=== PATIENT | female | born 1960 | race Caucasian/White ===

== ENCOUNTER 2016-07-24 12:49 | Emergency (ER) | payer MEDICARE, MEDICAID ==
[~2016-07-24] VITALS: Ht 160 cm; Wt 64.0 kg
[~2016-07-24 12:49] MED LIST: BACT800T5 PO; FLUO40CA PO; HYDR-3580 PO; IBUP-238 PO; LORA0.5T PO
[2016-07-24 12:51] VITALS: BP 174/81; PULSE 87; RESP 15; TEMP 97.7; O2SAT 98
[2016-07-24] MEDS ORDERED: PRIL20CA9 PO (13:40)
[2016-07-24] MEDS ORDERED: FLUO40CA PO (13:40)
[2016-07-24] MEDS ORDERED: PERC5TAB12 PO (13:40)
[2016-07-24] MEDS ORDERED: IBUP800T23 PO (14:22)
[2016-07-24] MEDS ORDERED: ROBA500T PO (14:22)
--- NOTE | 2016-07-24 14:22 | PD ---
HPI Chief Complaint: Back/ Neck Pain or Injury Time Seen by Provider: 14:20 Travel History International Travel<30 days: No Contact w/Intl Traveler<30days: No Traveled to known affect area: No History of Present Illness HPI 56-year-old female presents to the emergency department with complaint of right- sided sciatica. She has history of chronic low back pain and right-sided sciatica. Her sciatica was exacerbated 4 weeks ago. She has had chronic low back pain for approximately 11 years. She denies new or recent injury. Denies encopresis, incontinence, saddle anesthesias. Denies fever, chills, nausea, vomiting. Denies urinary symptoms. Denies IV drug use. Denies cancer. Denies paresthesias, loss of sensation, decreased range of motion, decreased strength to bilateral lower extremities. Pain is aggravated with movement, walking, palpation. Dr. Pride is primary care provider. Allergies to penicillin and strawberries. No other modifying factors or associated signs and symptoms. PFSH Past Medical History Arthritis: Yes Anxiety: Yes Depression: Yes Cancer: No Cardiovascular Problems: No Diabetes: No Diminished Hearing: No Endocrine: No GERD: Yes Genitourinary: No Hepatitis: No Hiatal Hernia: No Immune Disorder: No Musculoskeletal: Yes (arthritis) Neurologic: Yes (right arm pain) Psychiatric: Yes (DEPRESSION) Reproductive: No Respiratory: No Thyroid Disease: No Menopausal: Yes : 18 Para: 4 Tubal Ligation: Yes Past Surgical History Abdominal Surgery: No AICD: No Cardiac Surgery: No Ear Surgery: No Endocrine Surgery: No Eye Surgery: No Genitourinary Surgery: No Gynecologic Surgery: No Joint Replacement: No Oral Surgery: Yes (upper and lower lip/facial surgery due to a dog bite) Pacemaker: No Thoracic Surgery: No Other Surgery: Yes (KNEE, BACK-WITH CAGE PLACMENT, AND FACE) Social History Alcohol Use: No Tobacco Use: Yes (1/2 PPD) Substance Use: Yes (MARIJUANA) Allergies-Medications (Allergen,Severity, Reaction): Coded Allergies: Penicillin (Verified Allergy, Mild, HIVES, 01/21/16) [place] (Verified Allergy, Mild, HIVES, 01/21/16) Reported Meds & Prescriptions Reported Meds & Active Scripts Active Robaxin (Methocarbamol) 500 Mg Tab 500 Mg PO QID PRN Ibuprofen 800 Mg Tab 800 Mg PO Q6HR PRN Reported Percocet (Oxycodone-Acetaminophen) 5-325 mg Tab 1 Tab PO Q4H PRN Prilosec (Omeprazole) 20 Mg Cap 20 Mg PO DAILY Fluoxetine (Fluoxetine HCl) 40 Mg Cap 40 Cap PO DAILY Review of Systems Except as stated in HPI: all other systems reviewed are Neg Physical Exam Narrative GENERAL: Well-nourished, well-developed female patient, in no acute distress; afebrile, nontoxic-appearing SKIN: Warm and dry. HEAD: Atraumatic. Normocephalic. EYES: Pupils equal and round. No scleral icterus. No injection or drainage. ENT: Mucosa pink and moist. Airway patent. NECK: Trachea midline. CARDIOVASCULAR: Regular rate. RESPIRATORY: No accessory muscle use. GASTROINTESTINAL: Flat. MUSCULOSKELETAL: Bilateral lower extremities supple and non-tense with 2+ pedal pulses and sensory intact; with full range of motion and 5/5 strength. Active dorsiflexion and extension of bilateral feet. Bilateral straight leg raise is negative for low back pain. Ambulatory with normal gait. Sitting up in bed at 90. No obvious deformities. No clubbing. No cyanosis. No edema. BACK: No midline point tenderness on palpation of the lumbar spine. Tenderness on palpation of right iliosacral area. No obvious deformities. NEUROLOGICAL: Awake and alert. Oriented 3. No obvious cranial nerve deficits. Motor grossly within normal limits. Normal speech. Moves all extremities. 5/5 strength to all extremities. Sensory intact. PSYCHIATRIC: Appropriate mood and affect; insight and judgment normal. Data Data Last Documented VS Vital Signs Date Time Temp Pulse Resp B/P Pulse Ox O2 Delivery O2 Flow Rate FiO2 07/24/16 12:51 97.7 87 15 174/81 98 Orders Ketorolac Inj (Toradol Inj) (07/24/16 14:30) Orphenadrine Inj (Norflex Inj) (07/24/16 14:30) MDM Medical Decision Making Medical Screen Exam Complete: Yes Emergency Medical Condition: Yes Medical Record Reviewed: Yes Differential Diagnosis Acute exacerbation of chronic low back pain, sciatica, low back strain Narrative Course 56-year-old female with chronic low back pain with acute exacerbation of chronic low back pain and right-sided sciatica. No new or recent injury. No midline point tenderness on palpation of the lumbar spine. Reproducible tenderness to the right iliosacral area. Denies IV drug use. Denies cancer. Denies fever, chills, nausea, vomiting. Patient is afebrile nontoxic appearing in the ER. Toradol and Norflex administered in the ER. Ibuprofen and Robaxin prescribed for home. Patient is medically cleared and stable for discharge. Discussed reasons to return to the emergency department. Instructed patient to follow up with primary care provider. Patient agrees with treatment plan. The patients vital signs are stable and the patient is stable for outpatient follow- up and treatment. Patient discharged home, stable and in no acute distress. Diagnosis Primary Impression: Right-sided low back pain with sciatica Qualified Code: M54.41 - Right-sided low back pain with right-sided sciatica, unspecified chronicity Referrals: Primary Care Physician Patient Instructions: General Instructions, Sciatica (ED) Departure Forms: Tests/Procedures Additional Instructions: Tylenol or ibuprofen as directed and as needed for pain Robaxin as prescribed and as needed for muscle spasms Heating pad and/or ice to affected area to reduce pain Avoid aggravating activities; increase activity as tolerated Follow-up with primary care provider Return to emergency department immediately with worsening of symptoms Med/Other Pt SpecificInfo: Prescription(s) given Scripts Methocarbamol (Robaxin)500 Mg [id number] Mg PO QID PRN (MUSCLE SPASM) #30 TAB Ref 0 Prov:Delores Calix 07/24/16 Ibuprofen 800 Mg [id number] Mg PO Q6HR PRN (PAIN) #30 TAB Ref 0 Prov:Delores Calix 07/24/16 Disposition: 01 DISCHARGE HOME Condition: Stable Delores Calix Jul 24, 2016 14:22
[2016-07-24] MEDS ORDERED: KETOROLAC TROMETHAMINE 60 MG/2 ML (IM) VIAL IM ONE (14:30)
[2016-07-24] MEDS ORDERED: ORPHENADRINE INJ 60 MG/2 ML AMP IM ONE (14:30)
== END 2016-07-24 15:06 | disposition home or self-care (01) ==
LOC: NEPB 12:49
DX: M54.41 Lumbago with sciatica, right side (principal); K21.9 Gastro-esophageal reflux disease without esophagitis; F17.210 Nicotine dependence, cigarettes, uncomplicated
CPT/HCPCS: 99283

== ENCOUNTER 2017-02-27 09:34 | Emergency (ER) | payer MEDICARE, MEDICAID ==
[~2017-02-27] VITALS: Ht 160 cm; Wt 104.0 kg
[~2017-02-27 09:34] MED LIST changes: -BACT800T5 PO; -HYDR-3580 PO; -IBUP-238 PO; +IBUP800T23 PO; -LORA0.5T PO; +PERC5TAB12 PO; +PRIL20CA9 PO; +ROBA500T PO
[2017-02-27 09:36] VITALS: BP 192/98; PULSE 85; RESP 20; TEMP 98.4; O2SAT 99
[2017-02-27] MEDS ORDERED: predniSONE 20 MG TAB PO ONE (10:30)
--- NOTE | 2017-02-27 10:30 | PD ---
HPI Chief Complaint: Pain: Acute or Chronic Time Seen by Provider: 10:24 Travel History International Travel<30 days: No Contact w/Intl Traveler<30days: No Traveled to known affect area: No History of Present Illness HPI 56-year-old female presents the emergency department with worsening right shoulder pain. Patient states she's had right shoulder pain for the last several weeks, and has been seen by her primary care physician as well as her pain management physician for the same issue. She is currently taking a nonsteroidal as well as muscle relaxant without improvement. Patient states no acute injury. Patient states she woke this morning with much worse pain and decreased range of motion in the right shoulder. The patient denies numbness, tingling, or weakness in the distal right upper extremity. Pain is currently a 10 out of 10 with any movement. She is allergic to penicillin and strawberries PFSH Past Medical History Arthritis: Yes Anxiety: Yes Depression: Yes Cancer: No Cardiovascular Problems: No Diabetes: No Diminished Hearing: No Endocrine: No GERD: Yes Genitourinary: No Hepatitis: No Hiatal Hernia: No Immune Disorder: No Musculoskeletal: Yes (arthritis) Neurologic: Yes (right arm pain) Psychiatric: Yes (DEPRESSION) Reproductive: No Respiratory: No Thyroid Disease: No Menopausal: Yes : 18 Para: 4 Tubal Ligation: Yes Past Surgical History Abdominal Surgery: No AICD: No Cardiac Surgery: No Ear Surgery: No Endocrine Surgery: No Eye Surgery: No Genitourinary Surgery: No Gynecologic Surgery: No Joint Replacement: No Oral Surgery: Yes (upper and lower lip/facial surgery due to a dog bite) Pacemaker: No Thoracic Surgery: No Other Surgery: Yes (KNEE, BACK-WITH CAGE PLACMENT, AND FACE) Social History Alcohol Use: No Tobacco Use: Yes (/2 PPD) Substance Use: Yes (MARIJUANA) Allergies-Medications (Allergen,Severity, Reaction): Coded Allergies: penicillin G (Unverified Allergy, Mild, HIVES, 02/27/17) strawberry (Unverified Allergy, Mild, HIVES, 02/27/17) Reported Meds & Prescriptions Reported Meds & Active Scripts Active Robaxin (Methocarbamol) 500 Mg Tab 500 Mg PO QID PRN Ibuprofen 800 Mg Tab 800 Mg PO Q6HR PRN Reported Percocet (Oxycodone-Acetaminophen) 5-325 mg Tab 1 Tab PO Q4H PRN Prilosec (Omeprazole) 20 Mg Cap 20 Mg PO DAILY Fluoxetine (Fluoxetine HCl) 40 Mg Cap 40 Cap PO DAILY Review of Systems Except as stated in HPI: all other systems reviewed are Neg General / Constitutional: No: Fever Eyes: No: Visual changes HENT: No: Headaches Cardiovascular: No: Chest Pain or Discomfort Respiratory: No: Shortness of Breath Gastrointestinal: No: Abdominal Pain Genitourinary: No: Dysuria Musculoskeletal: Positive: Arthralgias, Limited ROM, Pain Skin: No Rash Neurologic: No: Weakness Psychiatric: No: Depression Endocrine: No: Polydipsia Hematologic/Lymphatic: No: Easy Bruising Physical Exam Narrative GENERAL: Patient appears in mild to moderate distress. SKIN: Warm and dry. Normal color. Normal turgor. No rash. HEAD: Atraumatic. Normocephalic. EYES: Pupils equal and round. No scleral icterus. No injection or drainage. ENT: No nasal bleeding or discharge. Mucous membranes pink and moist. Pharynx is clear. Airway is patent. NECK: Trachea midline. No bony tenderness or step-off. Patient is soft tissue tenderness extending into the right upper trapezius. CARDIOVASCULAR: Regular rate and rhythm. No murmurs gallops or rubs. RESPIRATORY: No accessory muscle use. Clear to auscultation. Breath sounds equal bilaterally. MUSCULOSKELETAL: Extremities without clubbing, cyanosis, or edema. No obvious deformities. She has diminished active and passive motion of the right shoulder secondary to pain only. No obvious signs of deformity, laxity, or loss of function is noted. No effusion is noted. No significant increased warmth is noted. NEUROLOGICAL: Awake and alert. No obvious cranial nerve deficits. Motor grossly within normal limits. Five out of 5 muscle strength in the arms and legs. Normal speech. PSYCHIATRIC: Appropriate mood and affect; insight and judgment normal. Data Data Last Documented VS Vital Signs Date Time Temp Pulse Resp B/P (MAP) Pulse Ox O2 Delivery O2 Flow Rate FiO2 02/27/17 09:36 98.4 85 20 192/98 (129) 99 Orders Orders Prednisone (Deltasone) (02/27/17 10:30) [facility] Medical Decision Making Medical Screen Exam Complete: Yes Emergency Medical Condition: Yes Differential Diagnosis Right shoulder pain. Right shoulder bursitis. Shoulder tendinitis. Shoulder arthritis. Narrative Course Radiographic imaging is not felt warranted based on the patient's current history and physical. Patient is given prednisone 40 mg by mouth now. Patient will be continued on prednisone 20 mg twice a day 7 days. Patient is to continue other meds as previously prescribed. Patient follow with her primary care physician/pain management for further evaluation and treatment as needed. Diagnosis Primary Impression: Right shoulder tendonitis Referrals: Primary Care Physician call for appointment Patient Instructions: General Instructions, Shoulder Pain (ED) Additional Instructions: Radiographic imaging is not felt warranted based on the patient's current history and physical. Patient is given prednisone 40 mg by mouth now. Patient will be continued on prednisone 20 mg twice a day 7 days. Patient is to continue other meds as previously prescribed. Patient follow with her primary care physician/pain management for further evaluation and treatment as needed. Med/Other Pt SpecificInfo: Prescription(s) given Disposition: 01 DISCHARGE HOME Condition: Stable Benoit Mcdonald Feb 27, 2017 10:30
[2017-02-27] MEDS ORDERED: PRED20 PO (10:31)
== END 2017-02-27 10:54 | disposition home or self-care (01) ==
LOC: NEPK 09:34
DX: M75.81 Other shoulder lesions, right shoulder (principal); Z72.0 Tobacco use
CPT/HCPCS: 99283; J7512

== ENCOUNTER 2017-08-18 09:46 | Emergency (ER) | payer MEDICARE, MEDICAID ==
[~2017-08-18] VITALS: Ht 160 cm; Wt 60.0 kg
[~2017-08-18 09:46] MED LIST changes: +IBUP1TAB7 PO; -IBUP800T23 PO; +PRED20 PO
[2017-08-18 09:59] VITALS: BP 146/76; PULSE 78; RESP 18; TEMP 98.3; O2SAT 100
--- NOTE | 2017-08-18 11:23 | RADRPT ---
EXAM DATE/TIME: 08/18/2017 11:11 [place] COMPARISON: No previous studies available for comparison. INDICATIONS : Knee pain, swelling, and bruising after fall today. MEDICAL HISTORY : None. SURGICAL HISTORY : None. ENCOUNTER: Initial ACUITY: 1 day PAIN SCORE: 10/10 LOCATION: Left knee. FINDINGS: Four view examination of the left knee demonstrates no evidence of fracture or dislocation. Bony min eralization is normal. The articular surfaces are intact. The suprapatellar soft tissues have a nor mal configuration. Mild soft tissue swelling overlying the proximal anterior tibial region. CONCLUSION: 1. No acute fracture or dislocation. Delgado Frye MD on August 18, 2017 at 11:19 Board Certified Radiologist. This report was verified electronically.
[2017-08-18] MEDS ORDERED: ALPR2TAB3 PO (11:43)
[2017-08-18] MEDS ORDERED: FLUO60TA PO (11:43)
[2017-08-18] MEDS ORDERED: OMEP20TA93 PO (11:43)
--- NOTE | 2017-08-18 11:43 | PD ---
HPI . Left knee injury Chief Complaint: Injury Time Seen by Provider: 10:53 Travel History International Travel<30 days: No Contact w/Intl Traveler<30days: No Traveled to known affect area: No History of Present Illness HPI Patient presents status post a mechanical fall at about 8:45 this morning. She landed on her left knee. She presents to us complaining with pain which she rates 4/10. She is able to walk. She is now complaining with some associated spasms in her calf. She has not done anything for it prior to arrival. Pain is exacerbated by walking. PFSH Past Medical History Arthritis: Yes Anxiety: Yes Depression: Yes Cancer: No Cardiovascular Problems: No Diabetes: No Diminished Hearing: No Endocrine: No GERD: Yes Genitourinary: No Hepatitis: No Hiatal Hernia: No Immune Disorder: No Musculoskeletal: Yes (arthritis) Neurologic: Yes (right arm pain) Psychiatric: Yes (DEPRESSION) Reproductive: No Respiratory: No Thyroid Disease: No Menopausal: Yes : 18 Para: 4 Tubal Ligation: Yes Past Surgical History Abdominal Surgery: No AICD: No Cardiac Surgery: No Ear Surgery: No Endocrine Surgery: No Eye Surgery: No Genitourinary Surgery: No Gynecologic Surgery: No Joint Replacement: No Oral Surgery: Yes (upper and lower lip/facial surgery due to a dog bite) Pacemaker: No Thoracic Surgery: No Other Surgery: Yes (KNEE, BACK-WITH CAGE PLACMENT, AND FACE) Social History Alcohol Use: No Tobacco Use: Yes (/2 PPD) Substance Use: Yes (MARIJUANA) Allergies-Medications (Allergen,Severity, Reaction): Coded Allergies: penicillin G (Unverified Allergy, Mild, HIVES, 08/18/17) strawberry (Unverified Allergy, Mild, HIVES, 08/18/17) Reported Meds & Prescriptions Reported Meds & Active Scripts Active Ibuprofen 800 Mg Tab 800 Mg PO Q6HR PRN Reported Alprazolam 2 Mg Tab 2 Mg PO Q8H PRN Omeprazole 20 Mg Tab 20 Mg PO DAILY Fluoxetine (Fluoxetine HCl) 60 Mg Tab 60 Mg PO DAILY Percocet (Oxycodone-Acetaminophen) 5-325 mg Tab 1 Tab PO Q4H PRN Review of Systems Except as stated in HPI: all other systems reviewed are Neg HENT: Positive: Other (abrasion to her chin) Musculoskeletal: Positive: Arthralgias, Limited ROM Skin: Positive Change in Pigmentation Physical Exam Narrative GENERAL: Awake and alert and in no acute distress. SKIN: Warm and dry. Bruise distal to the left patella. HEAD: Normocephalic/atraumatic. EYES: Pupils are equal. Extraocular movements are intact. NECK: Normal range of motion. RESPIRATORY: Nonlabored respirations. MUSCULOSKELETAL: Tenderness distal to the left patella. The knee joint itself appears normal with no deformity. She is distally neurovascularly intact. NEUROLOGICAL: Nonfocal. PSYCHIATRIC: Appropriate mood and affect. Data Data Last Documented VS Vital Signs Date Time Temp Pulse Resp B/P (MAP) Pulse Ox O2 Delivery O2 Flow Rate FiO2 08/18/17 09:59 98.3 78 18 146/76 (99) 100 Orders Orders Knee, Complete (4vws) (08/18/17 10:53) [facility] Medical Decision Making Medical Screen Exam Complete: Yes Emergency Medical Condition: Yes Differential Diagnosis Differential diagnosis of extremity trauma includes but is not limited to fracture, sprain or strain, dislocation, contusion Narrative Course Patient presents with an injury to her left knee. She has a contusion on exam. Last Impressions Knee X-Ray 08/18/17 1053 Signed Impressions: Service Date/Time: Friday, August 18, 2017 11:11 - CONCLUSION: 1. No acute fracture or dislocation. Delgado Frye MD Patient will be discharged home with prescriptions for ibuprofen and Flexeril. Diagnosis Primary Impression: Contusion of left knee Qualified Codes: S80.02XA - Contusion of left knee, initial encounter Patient Instructions: Contusion in Adults (DC), General Instructions, RICE Therapy (ED) Med/Other Pt SpecificInfo: Prescription(s) given Scripts Cyclobenzaprine (Flexeril) 10 Mg Tab 10 MG PO TID for Muscle Spasm, #15 TAB 0 Refills Prov: Leonor Anaya MD 08/18/17 Ibuprofen (Ibuprofen) 800 Mg Tab 800 MG PO Q8H Y for Pain/Inflammation, #60 TAB 0 Refills Prov: Leonor Anaya MD 08/18/17 Disposition: 01 DISCHARGE HOME Condition: Stable Leonor Anaya MD Aug 18, 2017 11:43
[2017-08-18] MEDS ORDERED: CYCL10TA PO (11:50)
[2017-08-18] MEDS ORDERED: IBUP1TAB7 PO (11:50)
[2017-08-18 11:59] VITALS: BP 153/84
== END 2017-08-18 12:10 | disposition home or self-care (01) ==
LOC: NEPD 09:46
DX: S80.02XA Contusion of left knee, initial encounter (principal); F12.90 Cannabis use, unspecified, uncomplicated; F17.200 Nicotine dependence, unspecified, uncomplicated; K21.9 Gastro-esophageal reflux disease without esophagitis; W19.XXXA Unspecified fall, initial encounter
CPT/HCPCS: 73564; 99283; E0113